=== PATIENT | female | born 1965 | race Caucasian/White ===

== ENCOUNTER → 2017-10-01 | Outpatient (CLI) | payer OTHER ==
[2017-10-01 11:53] LABS: BASOPHILS # (AUTO) 0.1 X10^3/uL (0.0-0.1); BASOPHILS % (AUTO) 0.8 % (0.2-1.0); EOSINOPHILS # (AUTO) 0.1 x10^3/uL (0.0-0.2); EOSINOPHILS % (AUTO) 1.7 % (0.9-2.9); HEMATOCRIT 40.1 % (36.0-47.0); HEMOGLOBIN 13.9 g/dL (12.0-16.0); LYMPHOCYTES # (AUTO) 1.5 X10^3/uL (1.3-2.9); LYMPHOCYTES % (AUTO) 23.4 % (21.0-51.0); MEAN CORPUSCULAR HEMOGLOBIN 29.5 pg (27.0-34.0); MEAN CORPUSCULAR HGB CONC 34.6 g/dL (33.0-35.0); MEAN CORPUSCULAR VOLUME 85.2 fL (80.0-100.0); MEAN PLATELET VOLUME 8.4 fL (7.4-11.0); MONOCYTES # (AUTO) 0.4 x10^3/uL (0.3-0.8); MONOCYTES % (AUTO) 6.8 % (0.0-13.0); NEUTROPHILS # (AUTO) 4.2 x10^3/uL (2.2-4.8); NEUTROPHILS % (AUTO) 67.3 % (42.0-75.0); PLATELET COUNT 267 X10^3/uL (150.0-450.0); RED CELL DISTRIBUTION WIDTH 13.2 % (11.6-16.5); WHITE BLOOD COUNT 6.3 X10^3/uL (3.6-10.0)
[2017-10-01 11:54] LABS: BILIRUBIN,URINE NEGATIVE (NEGATIVE); BLOOD/HEMOGLOBIN,URINE 2+ (NEGATIVE); GLUCOSE, URINE NEGATIVE (NEGATIVE); KETONES,URINE NEGATIVE (NEGATIVE); LEUKOCYTE ESTERASE ,URINE 3+ (NEGATIVE); NITRITES,URINE NEGATIVE (NEGATIVE); PROTEIN,URINE NEGATIVE (NEGATIVE); UROBILINOGEN,URINE NORMAL (NORMAL)
[2017-10-01 12:02] LABS: ALANINE AMINOTRANSFERASE 28 Units/L (12-78); ALBUMIN 3.4 g/dL (3.4-5.0); ALKALINE PHOSPHATASE 84 Units/L (46-116); ASPARTATE AMINO TRANSFERASE 15 Units/L (15-37); BLOOD UREA NITROGEN 14 mg/dL (7-18); CALCIUM 8.3 mg/dL (8.5-10.1); CARBON DIOXIDE 27.8 mmol/L (21-32); CHLORIDE 107 mmol/L (98-107); CREATININE 0.71 mg/dL (0.55-1.02); SODIUM 142 mmol/L (136-145); TOTAL PROTEIN 7.1 g/dL (6.4-8.2); eGFR BLACK RACES > 60 (>60); eGFR NON BLACK RACES > 60 (>60)
[2017-10-01 12:03] LABS: APPEARANCE,URINE SLIGHTLY HAZY (CLEAR); BACTERIA,URINE TRACE /HPF (NEGATIVE); COLOR,URINE YELLOW (YELLOW); RBC,URINE 0-3 /HPF (NONE SEEN); SQUAMOUS EPITHELIAL CELL,UR MANY /HPF (NEGATIVE)
[2017-10-01 12:26] LABS: ERYTHROCYTE SEDIMENTATION RATE 3 MM/HOUR (0-20)
--- NOTE | 2017-10-01 12:26 | RAD ---
HISTORY: Preoperative exam for finger surgery Study: Two views of the chest Comparison: None Findings: The trachea is midline. The cardiac silhouette is unremarkable. The lungs are clear without focal i nfiltrate or effusion. Slight elevation of the right hemidiaphragm is noted. The aortic knob is pa rtially calcified. Surgical clips project over the right upper quadrant the abdomen. IMPRESSION: 1. No acute cardiopulmonary disease. Reported By:
== END ==
LOC: LAB 11:18
PROVIDERS: ATTEND Orthopaedic Surgery
DX: Z01.818 Encounter for other preprocedural examination (principal); Z01.810 Encounter for preprocedural cardiovascular examination; Z01.811 Encounter for preprocedural respiratory examination; Z79.899 Other long term (current) drug therapy; Z11.8 Encounter for screening for other infectious and parasitic diseases; S62.626A Displaced fracture of middle phalanx of right little finger, initial encounter for closed fracture; X58.XXXA Exposure to other specified factors, initial encounter
CPT/HCPCS: 36415; 71046; 80053; 81001; 85025; 85652; 86140; 87640; 87641; 93005; 93010

== ENCOUNTER 2017-10-03 08:42 | Day surgery (SDC) | payer OTHER ==
[2017-10-03] MEDS ORDERED: D5 LR 1000 ML 1,000 ML IV ONE (09:12)
[2017-10-03] MEDS ORDERED: DIPRIVAN VIAL ONE (09:23)
[2017-10-03] MEDS ORDERED: SUPRANE IN ONE (09:23)
[2017-10-03] MEDS ORDERED: REGLAN INJ 10 MG VIAL ONE (09:23)
[2017-10-03] MEDS ORDERED: ZOFRAN INJ 4 MG VIAL ONE (09:23)
[2017-10-03] MEDS ORDERED: TORADOL 30 MG VIAL ONE (09:23)
[2017-10-03] MEDS ORDERED: VERSED ONE (09:23)
[2017-10-03] MEDS ORDERED: FENTANYL INJ 100 mcg ONE ×2 (11:42→12:45)
[2017-10-03] MEDS ORDERED: ANCEF 1 GM IV PREMIX* 1 GM/50 ML BAG IV ONE (12:10)
[2017-10-03] MEDS ORDERED: NS IRRIGATION 1000 ML 1,000 ML with BACITRACIN VIAL 50,000 UNT IR ONE ×2 (12:16)
[2017-10-03] MEDS ORDERED: BACTROBAN OINT TOP ONE (13:07)
[2017-10-03] MEDS ORDERED: BACTROBAN OINT ONE (13:09)
[2017-10-03] MEDS ORDERED: REGLAN INJ 10 MG VIAL IVP PRN (13:29)
[2017-10-03] MEDS ORDERED: ZOFRAN INJ 4 MG VIAL IVP PRN (13:29)
[2017-10-03] MEDS ORDERED: BENADRYL INJ 50 MG VIAL IVP PRN (13:29)
[2017-10-03] MEDS ORDERED: PHENERGAN INJ 25 MG IVP PRN (13:29)
[2017-10-03] MEDS ORDERED: DILAUDID INJ IVP PRN (13:29)
[2017-10-03] MEDS ORDERED: DILAUDID INJ ONE (13:48)
[2017-10-03] MEDS ORDERED: PERCOCET TAB 5/325 MG PO PRN (13:48)
--- NOTE | 2017-10-03 14:00 | RAD ---
HAND RADIOGRAPHS CLINICAL HISTORY: 51-year-old female status post ORIF 5th digit. COMPARISON: None. FINDINGS: Three views of the right hand demonstrate single Criss wire transfixing comminuted frac ture of the middle phalanx of the 5th digit with surrounding edema. Remaining osseous structures are intact and joint spaces are congruent. IMPRESSION: Status post ORIF 5th digit right hand with single Criss wire transfixing comminuted fracture of t he 2nd phalanx with surrounding edema. Reported By:
[2017-10-03 15:13] VITALS: BP 102/63
[2017-10-03] MEDS ORDERED: ZOFRAN TAB 4 MG SL PRN (15:20)
== END 2017-10-03 15:05 | disposition home or self-care (01) | DRG 514 ==
LOC: SURG1 08:42
PROVIDERS: ATTEND Orthopaedic Surgery
PROC: 0PST04Z Reposition Right Finger Phalanx with Internal Fixation Device, Open Approach (ICD-10-PCS; principal; 2017-10-03 09:45)
DX: S62.626A Displaced fracture of middle phalanx of right little finger, initial encounter for closed fracture (principal); X58.XXXA Exposure to other specified factors, initial encounter
CPT/HCPCS: 73130; 76000; A4222; J0690; J1170; J1885; J2250; J2405; J2765; J3010; J3490; J7120

== ENCOUNTER → 2017-10-25 | Outpatient (CLI) | payer OTHER ==
[2017-10-03 15:13] VITALS: BP 102/63
--- NOTE | 2017-10-25 10:10 | RAD ---
Examination: Right hand, three views History: Post op5th finger surgery Comparison reference 10/03/2017 Findings: Re-demonstration of surgical fixation of a intra-articular and comminuted fracture involvin g the middle phalanx of the 5th finger. Bony union is not complete. There remains slight displacement of fracture fragments. One of the current images does suggest contour deformity/fracture of the surg ical wire. Impression: Incomplete healing of internally fixed fracture 5th finger. Possible breakage of surgical fixation wire. Reported By:
== END | disposition home or self-care (01) | DRG 566 ==
LOC: RAD 09:15
PROVIDERS: ATTEND Orthopaedic Surgery
DX: S62.626 Displaced fracture of middle phalanx of right little finger (principal); X58.XXXD Exposure to other specified factors, subsequent encounter
CPT/HCPCS: 73130